=== PATIENT | female | born 1950 | race Caucasian/White ===

== ENCOUNTER 2023-11-17 09:40 | Emergency (ER) | payer SELFPAY ==
[2023-11-17 09:45] VITALS: BP 189/105
--- NOTE | 2023-11-17 10:16 | ED.GENMED ---
History of Present Illness
<Beulah Muhammad PA-C - Last Filed: 11/17/23 14:01>
General
Chief Complaint: Extremity Pain (non-traumatic)
Source: patient
Exam Limitations: none
Time Seen by Provider: 11/17/23 09:51
Nursing documentation reviewed up to this point in time: agreed with
Travel History
Have you had any contact with someone who has COVID-19?: No
Do you have any symptoms of coronavirus? Fever > 100 degrees, chills, cough, shortness of breath, sore throat, loss of taste or smell, muscle aches, or headache?: No
History of Present Illness
History of Present Illness:
Patient is a 73 year old female [facility] hx HTN, HLD, type 2 diabetes presenting for evaluation of right shoulder pain. Symptoms started about 3 days ago in the morning when she woke up. She endorses a constant pain in her right shoulder radiating down
into her right arm. She denies any true numbness or tingling. No known trauma to the area. She has tried ibuprofen at home which did not help. Pain is worse with movement. Patient denies any associated chest pain, shortness of breath,
diaphoresis, severe back pain. No fever, chills, nausea, vomiting, or urinary symptoms.
Patient has a history of type 2 diabetes which is well-controlled on metformin.
Phy Exam
<Beulah Muhammad PA-C - Last Filed: 11/17/23 14:01>
Physical Exam
Physical Exam:
General: Well appearing and non-toxic, vital signs reviewed�patient afebrile
HEENT: Atraumatic, normocephalic; pupils equal round reactive to light bilaterally, extraocular's intact, protecting airway
Neck: appears supple, normal range of motion, no cervical spine tenderness or midline spinal tenderness, no carotid tenderness
CV: Regular rhythm, heart sounds normal, no evidence of cyanosis
Resp: No evidence of respiratory distress, lungs clear, no accessory muscle use
Abd: Soft, nontender non-distended
Extremities: Full passive range of motion in all right upper extremity joints with some exacerbation of pain with overhead movements, right upper extremity neurovascular intact without any erythema, edema; no bony tenderness
Neuro: alert, speech normal, no focal neurologic deficits, no focal motor deficits, moving all extremities, sensation fully intact and equal bilaterally
Psych: Normal affect
Skin: Intact, no rashes or bruising
Course
<Beulah Muhammad PA-C - Last Filed: 11/17/23 14:01>
Orders/Labs/Results
Orders:
Orders
11/17/23 10:54
Electrocardiogram (*1) Urgent
Reason for Study: Other
Other Reason for Exam: shoulder pain
EKG- Treatment ONCE
Acetaminophen [Tylenol] 650 mg PO NOW STA
CR Cervical Spine 2 or 3 Vw Urgent
Comment:
Reason For Exam: shoulder pain
Shoulder, Right 2 Views [CR Shoulder - Right Min 2 View] Urgent
Comment:
Reason For Exam: shoulder pain
11/17/23 13:07
Triamcinolone Acetonide [Kenalog-10] 10 mg INTRAARTIC NOW STA
11/17/23 13:45
Sling Right-Treatment ONCE
Vital Signs
Initial and Last Documented VS:
Initial Vital Signs
Temp Pulse Resp BP Pulse Ox
98.5 F 96 16 189/105 97
11/17/23 09:45 11/17/23 09:45 11/17/23 09:45 11/17/23 09:45 11/17/23 09:45
Last Documented Vital Signs
Temp Pulse Resp BP Pulse Ox
98.5 F 83 18 176/105 96
11/17/23 09:45 11/17/23 12:08 11/17/23 12:08 11/17/23 12:08 11/17/23 12:08
<Jackson Mukherjee DO - Last Filed: 11/17/23 11:53>
Orders/Labs/Results
Orders:
Orders
11/17/23 10:54
Electrocardiogram (*1) Urgent
Reason for Study: Other
Other Reason for Exam: shoulder pain
EKG- Treatment ONCE
Acetaminophen [Tylenol] 650 mg PO NOW STA
CR Cervical Spine 2 or 3 Vw Urgent
Comment:
Reason For Exam: shoulder pain
Shoulder, Right 2 Views [CR Shoulder - Right Min 2 View] Urgent
Comment:
Reason For Exam: shoulder pain
11/17/23 13:07
Triamcinolone Acetonide [Kenalog-10] 10 mg INTRAARTIC NOW STA
11/17/23 13:45
Sling Right-Treatment ONCE
Vital Signs
Initial and Last Documented VS:
Initial Vital Signs
Temp Pulse Resp BP Pulse Ox
98.5 F 96 16 189/105 97
11/17/23 09:45 11/17/23 09:45 11/17/23 09:45 11/17/23 09:45 11/17/23 09:45
Last Documented Vital Signs
Temp Pulse Resp BP Pulse Ox
98.5 F 83 18 176/105 96
11/17/23 09:45 11/17/23 12:08 11/17/23 12:08 11/17/23 12:08 11/17/23 12:08
<Beulah Muhammad PA-C - Last Filed: 11/17/23 14:01>
MDM/Problems Addressed
Differential Diagnosis Includes:
cervical radiculopathy, tendonitis of shoulder, rotator cuff injury, doubt OR
MDM/Problems Addressed:
Patient is a 73-year-old female presenting for evaluation of right shoulder pain for the past 3 days. Pain starts from right shoulder radiating down the right arm made worse with movement. No chest pain, shortness of breath, diaphoresis, fever,
chills. No known trauma or injury to shoulder. Patient's vital signs are stable upon arrival. She has reproducible pain in right shoulder worse with overhead movements. Lungs clear. Heart sounds normal. Back likely cervical
radiculopathy/tenderness of shoulder-will get x-ray of shoulder and cervical spine. Due to patient's age and comorbidities�will obtain EKG. Will give Tylenol for pain. Will reassess.
EKG shows normal sinus rhythm with no signs of ischemia.
X-ray of shoulder shows no findings suggesting fracture or dislocation but changes suggesting possible chronic rotator cuff pathology. Cervical spine x-ray negative for any acute fracture.
Suspect likely tendinitis of shoulder/ rotator cuff muscles. Offered injection versus oral steroid/pain medication. Patient opts for injection. Verbal consent obtained by patient for injection. Area prepped with betadine, procedure performed
sterillmonae. Joint infection performed with 30mg Kenalog and 2cc lidocaine. Patient tolerated procedure well. Will place in shoulder sling. Lengthy discussion with patient and patients son regarding signs of infection. She is stable for discharge with
return precautions, supportive care at home, and ortho follow-up as needed. Patient and patients son comfortable with plan. All questions answered.
Chronic conditions affecting care:
HTN, Diabetes Mellitus type 2, Hyperlipidemia
Acute Exacerbation and/or Progression of Chronic Illness:
Right shoulder pain, shoulder tendinitis
<Beulah Muhammad PA-C - Last Filed: 11/17/23 14:01>
*Radiology
Radiology exam reviewed: preliminary read by ED provider and radiology read reviewed
*Pulse Oximetry
Patient hypoxic: no
*EKG
Interpreted by ED Provider?: Yes
EKG Intrepretation Date: 11/17/23
Interpretation: normal
Comparison EKG: no comparison EKG present
Heart Rate: 90
Rate: normal
Rhythm: sinus
[place]: normal axis
Interval: normal interval
QRS Pattern: normal QRS
Ischemia: no ischemia
*Marketing Communications Coordinator Interpretation
Rate: Marketing Communications Coordinator- N/A
*Critical Care Note
Total Time (30-74mins, 75-104mins- exclusive of procedures): Not Applicable
ED Attending Note
<Beulah Muhammad PA-C - Last Filed: 11/17/23 14:01>
-
Portions of this chart may have been created with voice recognition software.� Occasional wrong word or��sound alike� substitutions may have occurred due to the inherent limitations of voice recognition software.
<Jackson Mukherjee DO - Last Filed: 11/17/23 11:53>
ED Attending Note
Patient seen and examined by attending physician: Yes
I performed the substantive portion of visit, reviewed & personally made and approve the management plan that is documented in note by myself or GWEN.: Yes
ED Attending Note:
Seen with COLIN examined independently 73-year-old female reproducible pain in her right shoulder no chest pain or shortness of breath x-ray noted pain with extension and external rotation offered ejection versus pills she will go with injection
Discharge Plan
Departure
Patient Disposition: Home (Routine Discharge)
Date of Disposition: 11/17/23
Time of Disposition: 13:40
Patient with high blood pressure during this ER visit?: Yes
Condition: Good
Covid-19: Not Applicable
Discharge Problem:
Right shoulder pain
Instructions: Shoulder Pain (DC), Corticosteroid Joint Injection, How to Use a Shoulder Sling ED, BLOOD PRESSURE
Referrals:
Avelina King I., DO [Active] - As needed
UNKNOWN - PT DOES,NOT KNOW [Family Provider] -
Activity Restrictions/Additional Instructions:
-Return to the emergency department with any high fevers, chest pain, shortness of breath, numbness/tingling in right arm, intractable vomiting, significant worsening current symptoms, or any other concerns
-Return to the emergency room with any signs of infection including significant redness of right shoulder, significant swelling of right shoulder, significant reduction in range of motion, severe pain, high fevers
-You should take it easy over the next few days. You can apply ice to the shoulder. You can take ibuprofen as needed for discomfort. Follow package instructions for dosing
-You can use shoulder sling to decrease discomfort. You should continue to move your shoulder multiple times a day.
-Follow-up with orthopedics if symptoms persist or worsen.
Interventions
Interventions:
*Risk Screen - Suicide Last Done: 11/17/23 09:45
*General Assessment Last Done: 11/17/23 09:45
*Neglect/Abuse Screening Last Done: 11/17/23 09:45
ED-Skin Assessment Last Done: 11/17/23 11:07
ED-Peripheral Vascular Assessment Last Done: 11/17/23 11:07
ED-Musculoskeletal Assessment Last Done: 11/17/23 11:07
[2023-11-17] MEDS: TYLENOL 650 MG PO (11:04)
[2023-11-17 11:05] VITALS: BMI 33.1
[2023-11-17 12:08] VITALS: BP 176/105
== END 2023-11-17 14:06 | disposition home or self-care (01) ==
LOC: EMR 09:40
PROVIDERS: EMERGENCY PHYSICIAN Emergency Medicine
DX: M25.511 Pain in right shoulder (principal); I10 Essential (primary) hypertension; E78.5 Hyperlipidemia, unspecified; E11.9 Type 2 diabetes mellitus without complications
CPT/HCPCS: 99283; 72040; 73030; 93005

== ENCOUNTER → 2024-06-06 17:03 | Outpatient (REF) | payer MEDICARE, SELFPAY ==
[2024-06-06 18:39] LABS: % Basophils 1.1 % (0-2); % Eosinophils 1.8 % (0-6); % Immature Granulocytes 0.5 % (0-0.5); % Lymphocytes 22.3 % (20.5-51.1); % Monocytes 10.9 % (1.7-9.3); % Neutrophils 63.4 % (42.2-75.2); Absolute Basophils 0.1 10^3/uL (0-0.2); Absolute Eosinophils 0.1 10^3/uL (0-0.7); Absolute Lymphocytes 1.2 10^3/uL (1.2-3.4); Absolute Monocytes 0.6 10^3/uL (0.1-0.6); Absolute Neutrophils 3.5 10^3/uL (1.4-6.5); Hematocrit 38.4 % (37.0-47.0); Hemoglobin 12.5 g/dL (12.0-16.0); Mean Corp Hgb Conc. 32.6 g/dL (33.0-37.0); Mean Corpuscular Hgb 29.1 pg (27.0-31.0); Mean Corpuscular Volume 89.3 fL (81.0-99.0); Mean Platelet Volume 11.6 fL (7.4-10.4); Nucleated Red Blood Cells % 0 %; Platelet Count 345 10^3/uL (130-400); Red Cell Dist. Width 13.3 % (11.5-14.5); White Blood Cell Count 5.5 10^3/uL (4.8-10.8)
[2024-06-06 18:47] LABS: ALT (SGPT) 19 U/L (0-35); AST (SGOT) 29 U/L (14-36); Albumin 4.1 g/dl (3.5-5.0); Alkaline Phosphatase 130 U/L (38-126); Blood Urea Nitrogen 21 mg/dl (7-17); Carbon Dioxide 30 mmol/L (22-30); Chloride 104 mmol/L (98-107); Glucose 148 mg/dl (70-99); HDL Cholesterol 33 mg/dl; LDL Cholesterol, Calculated 98 mg/dl; Potassium 4.7 mmol/L (3.5-5.1); Sodium 144 mmol/L (135-145); Total Bilirubin 0.8 mg/dl (0.2-1.3); Total Cholesterol 152 mg/dl (50-199); Total Protein 7.5 g/dl (6.3-8.2); Triglyceride 108 mg/dl (10-149); Very Low Density Lipoprotein 21 mg/dl (0-30)
[2024-06-06 19:19] LABS: TSH 1.12 uIU/ml (0.47-4.68)
[2024-06-07 11:53] LABS: Glycohemoglobin (HgbA1c) 7.9 % (4.0-5.6)
== END ==
LOC: CLAB 17:03
PROVIDERS: ATTENDING PHYSICIAN Student in an Organized Health Care Education/Training Program
DX: I10 Essential (primary) hypertension (principal); E78.00 Pure hypercholesterolemia, unspecified; Z86.39 Personal history of other endocrine, nutritional and metabolic disease; Z68.36 Body mass index [BMI] 36.0-36.9, adult
CPT/HCPCS: 36415; 80053; 80061; 83036; 84443; 85025